=== PATIENT | male | born 1980 | race Hispanic/Latino ===

== ENCOUNTER 2020-04-02 10:28 | Emergency (ER) | payer BC ==
[~2020-04-02] VITALS: Ht 175.3 cm; Wt 136.1 kg
[2020-04-02] MEDS ORDERED: CLINDAMYCIN HC300 MG PO (10:52)
[2020-04-02] MEDS ORDERED: ACETAMINOPHEN500 MG PO (10:52)
[2020-04-02] MEDS ORDERED: IBUPROFEN IB200 MG PO (10:52)
[2020-04-02] MEDS ORDERED: CLINDAMYCIN PHOS 600 MG/ 4 ML VIAL ONE (11:00)
[2020-04-02] MEDS ORDERED: CLINDAMYCIN PHOS 600 MG/ 4 ML VIAL IM NR (11:00)
== END 2020-04-02 11:07 | disposition home or self-care (01) ==
LOC: FSED 10:47
DX: L03.115 Cellulitis of right lower limb (principal); E66.9 Obesity, unspecified
CPT/HCPCS: 99283

== ENCOUNTER 2021-05-19 10:45 | Emergency (ER) | payer BC ==
[~2021-05-19] VITALS: Ht 172.7 cm; Wt 156.5 kg
[~2021-05-19 10:45] MED LIST: ACETAMINOPHEN500 MG PO; CLINDAMYCIN HC300 MG PO; IBUPROFEN IB200 MG PO
[2021-05-19] MEDS ORDERED: IBUPROFEN 600 MG TAB PO STA (11:12)
[2021-05-19] MEDS ORDERED: LACTATED RINGER'S 1,000 ML INJ STA (11:12)
[2021-05-19] MEDS ORDERED: SODIUM CHLORIDE 0.9% 1000ML 1,000 ML ONE (11:35)
[2021-05-19] MEDS ORDERED: IBUPROFEN 600 MG TAB ONE (11:42)
[2021-05-19] MEDS ORDERED: LACTATED RINGER'S 1,000 ML ONE (11:42)
[2021-05-19] MEDS ORDERED: LACTATED RINGER'S 1,000 ML INJ ONE (12:45)
[2021-05-19] MEDS ORDERED: IBUPROFEN600 MG PO (14:29)
[2021-05-19] MEDS ORDERED: CLINDAMYCIN HC150 MG PO (14:29)
[2021-05-19] MEDS ORDERED: Clindamycin INJ 900 MG 900 MG in SODIUM CHLORIDE 0.9% 50ML 50 ML IV ONE (14:30)
[2021-05-19] MEDS ORDERED: CLINDAMYCIN 600MG / 50ML 50 ML IV ONE (14:30)
[2021-05-19] MEDS ORDERED: CLINDAMYCIN PHOS 300MG/2ML VIAL ONE (14:30)
[2021-05-19] MEDS ORDERED: SODIUM CHLORIDE 0.9% 100 ML ONE (15:06)
== END 2021-05-19 15:31 | disposition home or self-care (01) ==
LOC: FSED 10:51
DX: L03.115 Cellulitis of right lower limb (principal); U07.1 COVID-19; J06.9 Acute upper respiratory infection, unspecified
CPT/HCPCS: 80053; 83605; 85025; 99283; J7030; J7050; J7121; U0002

== ENCOUNTER 2021-07-06 10:45 | Emergency (ER) | payer BC ==
[~2021-07-06] VITALS: Ht 175.3 cm; Wt 161.0 kg
[~2021-07-06 10:45] MED LIST changes: +CLINDAMYCIN HC150 MG PO; +IBUPROFEN600 MG PO
[2021-07-06] MEDS ORDERED: PIPERACILLIN/TAZOBACTAM 4.5 GM in SODIUM CHLORIDE 0.9% 100 ML IV STA (11:07)
[2021-07-06] MEDS ORDERED: PIPERACILLIN/TAZOBACTAM 3.375 GM VIAL ONE (11:32)
[2021-07-06] MEDS ORDERED: SODIUM CHLORIDE 0.9% 100 ML ONE (11:33)
[2021-07-06] MEDS ORDERED: CEPHALEXIN500 MG PO (11:43)
[2021-07-06] MEDS ORDERED: BACTRIM DS TAB1 EACH PO (11:43)
== END 2021-07-06 12:18 | disposition home or self-care (01) ==
LOC: FSED 11:03
DX: M79.661 Pain in right lower leg (principal); L03.115 Cellulitis of right lower limb; F32.A Depression, unspecified
CPT/HCPCS: 80048; 85025; 99283; J2543; J7050

== ENCOUNTER 2022-08-03 11:58 | Emergency (ER) | payer BC ==
[~2022-08-03] VITALS: Ht 170.2 cm; Wt 148.9 kg
[~2022-08-03 11:58] MED LIST changes: +BACTRIM DS TAB1 EACH PO; +CEPHALEXIN500 MG PO; +DOXYCYCLINE HY100 MG PO; +LAMISIL AT12 G1 TOP; +TERBINAFINE HC250 MG PO
[2022-08-03] MEDS ORDERED: SODIUM CHLORIDE 0.9% 1000ML 1,000 ML IV STA ×2 (12:33)
[2022-08-03] MEDS ORDERED: Vancomycin IV 1 GM in SODIUM CHLORIDE 0.9% 250ML 250 ML IV ONE (12:45)
[2022-08-03] MEDS ORDERED: KETOROLAC TROMETHAMINE 30 MG/ML VIAL ONE (13:00)
[2022-08-03] MEDS ORDERED: Vancomycin IV 1 GM VIAL ONE (13:01)
[2022-08-03] MEDS ORDERED: SODIUM CHLORIDE 0.9% 250ML 250 ML ONE (13:01)
[2022-08-03] MEDS ORDERED: SODIUM CHLORIDE 0.9% 1000ML 2,000 ML ONE (13:01)
[2022-08-03] MEDS ORDERED: PIPERACILLIN/TAZOBACTAM 3.375 GM VIAL ONE (13:01)
[2022-08-03] MEDS ORDERED: KETOROLAC TROMETHAMINE 30 MG/ML VIAL IV ONE (13:15)
[2022-08-03] MEDS ORDERED: IBUPROFEN600 MG PO (14:17)
[2022-08-03] MEDS ORDERED: BACTRIM DS TAB1 EACH PO (14:17)
[2022-08-03] MEDS ORDERED: ONDANSETRON ODT4 MG PO (14:17)
[2022-08-03] MEDS ORDERED: CEPHALEXIN500 MG PO (14:17)
== END 2022-08-03 15:38 | disposition home or self-care (01) ==
LOC: FSED 12:13
DX: L03.115 Cellulitis of right lower limb (principal); I10 Essential (primary) hypertension; F32.A Depression, unspecified; E66.9 Obesity, unspecified
CPT/HCPCS: 80053; 85025; 96374; 99284; J1885; J2543; J3370; J7030; J7050